=== PATIENT | female | born 1975 | race Two or more races ===

== ENCOUNTER → 2022-05-22 | Emergency (ER) | payer OTHER ==
[~2022-05-22] VITALS: Ht 160 cm; Wt 81.6 kg
== END | disposition left against medical advice (07) ==
LOC: ER 11:00
DX: S49.91XA Unspecified injury of right shoulder and upper arm, initial encounter (principal); W19.XXXA Unspecified fall, initial encounter; Y93.9 Activity, unspecified; Y92.59 Other trade areas as the place of occurrence of the external cause; S79.911A Unspecified injury of right hip, initial encounter